=== PATIENT | female | born 1990 | race Hispanic/Latino ===

== ENCOUNTER 2018-05-04 10:20 | Emergency (ER) | payer OTHER, SELFPAY ==
[2018-05-04 10:25] VITALS: BMI 20.7
[2018-05-04 11:08] LABS: Bacteria Urine None Seen
[2018-05-04 11:21] LABS: RBC Urine 5-10/HPF (0-5/HPF); WBC Urine 5-10/HPF (0-5/HPF)
[2018-05-04 11:22] LABS: Amorphous Sediment Urine 3+; Culture Indicated Urine Specimen Cultured
[2018-05-04 12:00] VITALS: BP 112/77; PULSE 85; RESP 13; TEMP 36.9; O2SAT 100
--- NOTE | 2018-05-04 12:29 | ED.FEMALEGU ---
HPI - Female Genitourinary <PAVEL Mathew - Last Filed: 05/04/18 14:58> General Chief complaint: Urogenital-Female Stated complaint: 'THINK I HAVE UTI' Time Seen by Provider: 05/04/18 12:13 Source: patient Mode of arrival: ambulatory Limitations: no limitations History of Present Illness HPI Narrative: Patient is a 27-year-old female with history of UTI who presents with chief complaint of ?I think I have a UTI. She denies any fevers, nausea, vomiting, diarrhea in flank pain. She does endorse dysuria, urinary urgency and frequency. She denies chance of her chance of sexually transmitted infections. She denies any abdominal pain or vaginal discharge or vaginal complaints. She states this feels consistent with her previous UTI. Of note she states she had a really bad he UTI for which she was hospitalized previously several years ago. Related Data Previous Rx's Medication Instructions Recorded nitrofurantoin monohyd/m-cryst 100 mg PO BID #14 cap 05/04/18 Allergies Allergy/AdvReac Type Severity Reaction Status Date / Time No Known Drug Allergies Allergy Verified 05/04/18 10:24 Review of Systems <[facility] - Last Filed: 05/04/18 14:58> Constitutional Denies anorexia, Denies body ache(s), Denies chills, Denies fever(s) and Denies weakness Cardiovascular Denies diaphoresis, Denies syncope, Denies rapid heart rate, Denies lightheadedness and Denies dyspnea Respiratory Denies pain with cough, Denies dyspnea and Denies wheezing Gastrointestinal Gastrointestinal: Denies cramping, Denies nausea and Denies vomiting Genitourinary Reports as per HPI Musculoskeletal Denies back pain, Denies muscle weakness, Denies numbness and Denies tingling Integumentary/Breasts Denies pruritus, Denies erythema, Denies rash and Denies wounds Neurologic Denies confusion, Denies syncope, Denies numbness, Denies tingling and Denies weakness Psychiatric Denies anxiety, Denies confusion, Denies depression, Denies homicidal ideation and Denies suicidal ideation Allergic/Immunologic Denies wheezing Exam <PAVEL Mathew - Last Filed: 05/04/18 14:58> Initial Vital Signs Initial Vital Signs: Vital Signs Temperature 98.5 F 05/04/18 12:00 Pulse Rate 85 05/04/18 12:00 Respiratory Rate 13 05/04/18 12:00 Blood Pressure 112/77 05/04/18 12:00 Pulse Oximetry 100 05/04/18 12:00 Const General: cooperative, healthy appearing, comfortable, well developed and well groomed Nutritional Appearance: average body habitus Orientation: alert, awake and oriented x3 Chest Chest: normal inspection of the chest Resp Effort & Inspection: normal respiratory effort, able to speak in complete sentences, no audible wheezes, no cough, no grunting, not labored, no nasal flaring, no paradoxical thoraco-abdom movements, no pursed lip breathing, no respiratory distress, no retractions, no stridor and not tachypneic Auscultation: clear to auscultation bilaterally Cardio Rate: regular rate Rhythm: regular rhythm Heart Sounds: S1 normal and S2 normal GI Palpation: soft, No firm, No guarding, No hepatomegaly, No pulsatile mass, No splenomegaly, No tender and No ascites Auscultation: normal bowel sounds Neuro General: alert, awake and oriented x3 Cognition: normal cognition Speech: speech normal Gait: normal gait Motor: muscle tone normal throughout Psych Appearance: grossly normal Mental Status: mental status grossly normal <DO Kyrie Purvis Last Filed: 05/05/18 07:54> Initial Vital Signs Initial Vital Signs: Vital Signs Temperature 98.5 F 05/04/18 12:00 Pulse Rate 85 05/04/18 12:00 Respiratory Rate 13 05/04/18 12:00 Blood Pressure 112/77 05/04/18 12:00 Pulse Oximetry 100 05/04/18 12:00 Course <CARISSA Mathew - Last Filed: 05/04/18 14:58> Orders Ordered: ED Orders 05/04/18 10:51 Urine Culture Stat Urine Microscopic Stat Vital Signs - 8 hr 05/04/18 12:00 Temperature 98.5 F Pulse Rate 85 Respiratory Rate 13 Blood Pressure [Left Arm] 112/77 Pulse Oximetry 100 <Nicole Byrne DO - Last Filed: 05/05/18 07:54> Orders Ordered: ED Orders 05/04/18 10:51 Urine Culture Stat Urine Microscopic Stat Vital Signs - 8 hr 05/04/18 12:00 Temperature 98.5 F Pulse Rate 85 Respiratory Rate 13 Blood Pressure [Left Arm] 112/77 Pulse Oximetry 100 MDM - Female Genitourinary <PAVEL MathewBC - Last Filed: 05/04/18 14:58> Differential Diagnosis Likely urinary tract infection Lab Data Lab Results 05/04/18 Range/Units 10:51 Urine RBC 5-10/hpf H (0-5/HPF) Urine WBC 5-10/hpf H (0-5/HPF) Amorphous Sediment 3+ Urine Bacteria None seen (None) Ur Culture Indicated? Specimen cultured Micro UA Comment Not Reportable Point of Care Testing Test Results Negative Urine Dip Bedside Urine Glucose Negative Bedside Urine Bilirubin - Negative Bedside Urine Ketone - Negative Urine Specific [place] 1.015 Bedside Urine Occult Blood ++ Bedside Urine pH 8.5 Bedside Urine Protein +/- 15 Bedside Urine Urobilinogen - Negative Bedside Urine Nitrite - Negative Bedside Urine Leukocytes - Negative Esterase MDM Narrative Medical decision making narrative: The patient is a 27-year-old female who presents with urinary urgency frequency and dysuria. She has history of urinary tract infection. On urinalysis she had RBCs and WBCs. Given this information combined with her symptoms, will treat her for urinary tract infection while urine culture is pending. She does not have any drug allergies so I will choose Macrobid. I discussed at length return precautions including fever, flank pain inability keep down fluids. Patient had no questions or concerns upon discharge. <Nicole Byrne DO - Last Filed: 05/05/18 07:54> Lab Data Lab Results 05/04/18 Range/Units 10:51 Urine RBC 5-10/hpf H (0-5/HPF) Urine WBC 5-10/hpf H (0-5/HPF) Amorphous Sediment 3+ Urine Bacteria None seen (None) Ur Culture Indicated? Specimen cultured Micro UA Comment Not Reportable Point of Care Testing Test Results Negative Urine Dip Bedside Urine Glucose Negative Bedside Urine Bilirubin - Negative Bedside Urine Ketone - Negative Urine Specific [place] 1.015 Bedside Urine Occult Blood ++ Bedside Urine pH 8.5 Bedside Urine Protein +/- 15 Bedside Urine Urobilinogen - Negative Bedside Urine Nitrite - Negative Bedside Urine Leukocytes - Negative Esterase Discharge Plan Departure Patient Disposition: Home Clinical Impression: Urinary tract infection Discharge Date/Time: 05/04/18 12:39 Interventions: ED Discharge Assessment Last Done: 05/04/18 12:39 Instructions: DI for Urinary Tract Infection (UTI) Activity Restrictions/Additional Instructions: I am starting on an antibiotic for urinary tract infection. We are sending out your urine for culture to make sure that this antibiotic will take care of the infection. Please monitor for fever, and we will keep down fluids, flank pain her any signs of worsening and follow up with primary care provider if these occur. Please feel free to come back to emergency department for any acute needs. Prescriptions: New nitrofurantoin monohyd/m-cryst 100 mg capsule 100 mg PO BID Qty: 14 RF: 0 <Nicole Byrne DO - Last Filed: 05/05/18 07:54> Cosign ED Attending Chadwickature Attestation: I was immediately available in the department for consultation. Documentation has been reviewed. I agree with assessment and plan.
== END 2018-05-04 12:39 | disposition home or self-care (01) ==
PROVIDERS: Emergency Medicine; Emergency Provider Nurse Practitioner Family
DX: N39.0 Urinary tract infection, site not specified (principal)
CPT/HCPCS: 81003; 81015; 81025; 87077; 87086; 87186; 99282; 99283